=== PATIENT | female | born 2000 | race African-American/Black ===

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

== ENCOUNTER 2019-04-23 13:06 | Emergency (ER) | payer SELFPAY ==
[2019-04-23] MEDS ORDERED: Ibuprofen TAB* 600 MG PO ONE (15:19)
[2019-04-23 15:50] VITALS: BP 114/67
--- NOTE | 2019-04-23 16:30 | ED ---
Influenza-Like Illness - HPI Summary HPI Summary: Patient is a 18-year-old female presenting to the ED with request for a Monospot test. She states she has been feeling achy in her bilateral upper shoulders and fatigued. She believes she may have mono, but is unsure if she was exposed to it. She denies any fevers, sweats, chills. Symptoms began approximately 3 days ago and remained constant. She denies any headache, photophobia. Symptoms are not worse or better with positioning or better with rest. She is not tried anything [id number] for relief. - History of Current Complaint Chief Complaint: EDGeneral Time Seen by Provider: 04/23/19 13:14 Hx Obtained From: Patient Onset/Duration: Sudden Onset Severity: Mild Associated Signs & Symptoms: Myalgia - Risk Factors Influenza Risk Factors: Negative - Allergy/Home Medications Allergies/Adverse Reactions: Allergies Allergy/AdvReac Type Severity Reaction Status Date / Time lactose Allergy GI Upset Verified 04/23/19 13:13 Home Medications: Home Medications NK [No Home Medications Reported] 04/23/19 [History Confirmed 04/23/19] PMH/Surg Hx/FS Hx/Imm Hx Previously Healthy: Yes Endocrine/Hematology History: Denies: Hx Anticoagulant Therapy, Hx Blood Disorders, Hx Diabetes, Hx Sickle Cell Disease, Hx Thyroid Disease, Hx Anemia, Hx Unexplained Bleeding Cardiovascular History: Denies: Hx Coronary Artery Disease, Hx Hypertension Respiratory History: Denies: Hx Asthma GI History: Denies: Hx Cirrhosis, Hx Crohn's Disease, Hx Diverticulosis, Hx Gall Bladder Disease, Hx Gastroesophageal Reflux Disease, Hx Gastrointestinal Bleed, Hx Hiatal Hernia, Hx Obstructive Bowel, Hx Ulcer History: Denies: Hx Kidney Infection, Hx Kidney Stones Sensory History: Denies: Hx Deafness Infectious Disease History: No Infectious Disease History: Denies: Hx Clostridium Difficile, Hx Hepatitis, Traveled Outside the [place] in Last 30 Days - Family History Known Family History: Positive: Hypertension, Diabetes - Social History Occupation: Unemployed Lives: With Family Alcohol Use: Weekly Hx Substance Use: Yes Substance Use Type: Reports: Marijuana Hx Tobacco Use: Yes Smoking Status (MU): Current Every Day Smoker Review of Systems Constitutional: Negative Negative: Fever, Chills, Fatigue, Skin Diaphoresis Negative: Palpitations, Chest Pain Negative: Shortness Of Breath, Cough Genitourinary: Negative Positive: no symptoms reported, see HPI Positive: Myalgia - bilateral shoulders. Negative: Arthralgia Skin: Negative All Other Systems Reviewed And Are Negative: Yes Physical Exam Triage Information Reviewed: Yes Vital Signs On Initial Exam: Initial Vitals Temp Pulse Resp BP Pulse Ox 99.6 F 84 22 118/93 96 04/23/19 13:09 04/23/19 13:09 04/23/19 13:09 04/23/19 13:09 04/23/19 13:09 Vital Signs Reviewed: Yes Appearance: Positive: Well-Appearing, Well-Nourished Skin: Positive: Warm, Skin Color Reflects Adequate Perfusion Head/Face: Positive: Normal Head/Face Inspection Eyes: Positive: EOMI, JUSTINO, Conjunctiva Clear Neck: Positive: No Lymphadenopathy Respiratory/Lung Sounds: Positive: Clear to Auscultation, Breath Sounds Present Cardiovascular: Positive: RRR, Pulses are Symmetrical in both Upper and Lower Extremities Musculoskeletal: Positive: Strength/ROM Intact Neurological: Positive: Sensory/Motor Intact, Alert, Oriented to Person Place, Time, Speech Normal Psychiatric: Positive: Affect/Mood Appropriate Diagnostics - Vital Signs Vital Signs Temp Pulse Resp BP Pulse Ox 04/23/19 15:48 98.8 F 95 16 114/67 99 04/23/19 15:01 98.9 F 62 18 109/67 100 04/23/19 13:09 99.6 F 84 22 118/93 96 - Laboratory Lab Results: Lab Results 04/23/19 Range/Units 14:18 Monoscreen Negative (Negative) Lab Statement: Any lab studies that have been ordered have been reviewed, and results considered in the medical decision making process. Flu Symptom Course/Dx - Course Course Of Treatment: Monospot obtained and is negative. Patient is endorsing bilateral shoulder discomfort. Lungs CTA. RRR. No photophobia on physical exam. EOMI/PERRLA. Patient appears well. She'll be discharged with likely viral illness. - Diagnoses Differential Diagnosis/HQI/PQRI: Positive: Influenza, Upper Respiratory Infection Provider Diagnoses: Viral syndrome, Fatigue Discharge - Sign-Out/Discharge Documenting (check all that apply): Patient Departure Patient Received Moderate/Deep Sedation with Procedure: No - Discharge Plan Condition: Stable Disposition: HOME Patient Education Materials: Viral Syndrome (ED) Referrals: No Primary Care Phys,NOPCP [Primary Care Provider] - Additional Instructions: Ibuprofen 600mg three times daily for discomfort Moist heat to the area Rest as much as possible - Billing Disposition and Condition Condition: STABLE Disposition: Home - Attestation Statements Provider Attestation: I was available for consult. This patient was seen by the ENRIQUE. The patient was not presented to, seen by, or examined by me. -Ale
== END 2019-04-23 15:48 | disposition home or self-care (01) ==
LOC: ED 13:06
DX: B34.9 Viral infection, unspecified (principal); F17.290 Nicotine dependence, other tobacco product, uncomplicated
CPT/HCPCS: 36415; 86308; 99282; A9270-GY

== ENCOUNTER 2019-12-14 20:36 | Emergency (ER) | payer OTHER ==
[2019-12-14 23:11] VITALS: BP 103/67
== END 2019-12-15 01:48 | disposition left against medical advice (07) ==
LOC: ED 20:36
DX: R06.02 Shortness of breath (principal); Z53.21 Procedure and treatment not carried out due to patient leaving prior to being seen by health care provider
CPT/HCPCS: 99282

== ENCOUNTER 2022-05-21 04:42 | Inpatient (IN) ==
[2022-05-21 05:35] LABS: Urine Appearance Cloudy; Urine Bilirubin Negative (Negative); Urine Blood Negative (Negative); Urine Color Amber; Urine Glucose Negative (Negative); Urine Ketones Negative (Negative); Urine Nitrite Negative (Negative); Urine Protein Negative (Negative); Urine Specific Gravity 1.031 (1.002-1.030); Urine Urobilinogen Negative (Negative)
[2022-05-21] MEDS ORDERED: Nalbuphine 10 MG/ML 1 ML VIAL IV ONE (06:30)
[2022-05-21] MEDS ORDERED: Promethazine INJ(RESTRICTED) 25 MG/ML 1 ml VIAL IM ONE (06:31)
[2022-05-21 06:56] LABS: Urine Benzodiazepine Screen None Detected (None Detect); Urine Cannabinoids Screen None Detected (None Detect); Urine Opiates Screen None Detected (None Detect)
[2022-05-22] MEDS ORDERED: Nalbuphine 10 MG/ML 1 ML VIAL IM PRN (00:20)
[2022-05-22] MEDS ORDERED: Promethazine INJ(RESTRICTED) 25 MG/ML 1 ml VIAL IM PRN (00:21)
[2022-05-22] MEDS ORDERED: Buffered Lidocaine 1% SYRIN 1 ml INTRADERM ONE ×2 (09:07→09:13)
[2022-05-22] MEDS ORDERED: Lactated Ringers 1000 ml BAG 1,000 ML IV ONE ×2 (09:13→11:18)
[2022-05-22 09:45] LABS: ABS Eosinophils 0.1 10^3/ul (0-0.6); ABS Lymphocytes 1.5 10^3/ul (1.0-4.8); ABS Monocytes 0.8 10^3/ul (0-0.8); ABS Neutrophils 7.9 10^3/ul (1.5-7.7); Eosinophil % 0.6 %; Hematocrit 33 % (35-47); Hemoglobin 10.6 g/dL (12.0-16.0); Lymphocyte % 14.3 %; Mean Corpuscular HGB Conc 32 g/dL (31-36); Mean Corpuscular Hemoglobin 27 pg (27-31); Mean Corpuscular Volume 84 fL (80-97); Nucleated Red Blood Cells % 0.1; Platelet Count 358 10^3/uL (150-450); Red Blood Count 3.92 10^6 /uL (3.70-4.87); Red Cell Distribution Width 15 % (10-15); White Blood Count 10.3 10^3/uL (3.5-10.8)
[2022-05-22] MEDS ORDERED: Lactated Ringers 1000 ml BAG 1,000 ML IV SCH ×2 (10:00→12:00)
[2022-05-22] MEDS ORDERED: OBEPIDURAL (200 ML) 200 ML EPIDURAL ONE (10:17)
[2022-05-22] MEDS ORDERED: Sodium Citrate/Citric Acid LIQ 15 ML UDC PO PRN (11:18)
[2022-05-22] MEDS ORDERED: Phenylephrine 40 mcg/mL 10mL (400mcg) SYRINGE IV PUSH PRN ×2 (11:18)
[2022-05-22] MEDS: OBEPIDURAL (200 ML) 200 ML EPIDURAL SCH (11:27)
[2022-05-22 11:50] LABS: Urine Appearance Cloudy; Urine Bilirubin Negative (Negative); Urine Blood 3+ (Negative); Urine Color Yellow; Urine Glucose Negative (Negative); Urine Ketones Negative (Negative); Urine Nitrite Negative (Negative); Urine Protein Negative (Negative); Urine Specific Gravity 1.015 (1.002-1.030); Urine Urobilinogen Negative (Negative)
[2022-05-22 12:17] LABS: Urine Bacteria Absent (Absent); Urine Red Blood Cell 3+(>10/hpf) (Absent); Urine Squamous Epithelial Cell Present (Absent); Urine White Blood Cell Absent (Absent)
[2022-05-22] MEDS ORDERED: Oxytocin in LR 20 UNITS/1,000 ML BAG IVPB SCH ×2 (18:00→23:45)
[2022-05-22] MEDS ORDERED: Glycerin ADULT 2.4 gm SUPP PR PRN (23:24)
[2022-05-22] MEDS ORDERED: Dibucaine 1% OINT 28.35 GM TUBE PR PRN (23:24)
[2022-05-22] MEDS ORDERED: Witch Hazel PAD JAR TOPICAL PRN (23:24)
[2022-05-23 06:29] LABS: Hematocrit 27 % (35-47); Hemoglobin 8.7 g/dL (12.0-16.0); Mean Corpuscular HGB Conc 32 g/dL (31-36); Mean Corpuscular Hemoglobin 27 pg (27-31); Mean Corpuscular Volume 84 fL (80-97); Mean Platelet Volume 7.8 fL (7.4-10.4); Platelet Count 288 10^3/uL (150-450); Red Blood Count 3.18 10^6 /uL (3.70-4.87); Red Cell Distribution Width 15 % (10-15); White Blood Count 15.7 10^3/uL (3.5-10.8)
[2022-05-23 06:50] LABS: ABS Lymphocytes 1.2 10^3/ul (1.0-4.8); ABS Monocytes 1.7 10^3/ul (0-0.8); ABS Neutrophils 12.7 10^3/ul (1.5-7.7); Eosinophil % 0.1 %; Lymphocyte % 7.7 %
[2022-05-23] MEDS ORDERED: Iron Sucrose 200 MG in NS 0.9% 100 ml BAG 100 ML IVPB ONE (11:11)
[2022-05-23] MEDS ORDERED: NS 0.9% 100 ml BAG 100 ML ONE (11:20)
[2022-05-23] MEDS: OBEPIDURAL (200 ML) 200 ML EPIDURAL SCH (15:41)
[2022-05-24 08:39] VITALS: BP 110/82
== END 2022-05-24 16:14 | disposition home or self-care (01) | DRG 560 ==
LOC: MCHOBOUT 04:42 → MCHOB 05-22 09:07
PROVIDERS: ADMIT Midwife; ATTEND Midwife